=== PATIENT | male | born 1985 | race Caucasian/White ===

== ENCOUNTER 2019-05-11 08:35 | Emergency (ER) | payer BC ==
[~2019-05-11] VITALS: Ht 152.4 cm; Wt 115.2 kg
[2019-05-11 08:55] VITALS: Ht 152.4 cm; Wt 115.2 kg
[2019-05-11 11:11] VITALS: BP 132/84
== END 2019-05-11 11:11 | disposition home or self-care (01) ==
LOC: ED 08:35
DX: J11.1 Influenza due to unidentified influenza virus with other respiratory manifestations (principal)
CPT/HCPCS: 87804; Q0092; Q0162

== ENCOUNTER 2019-05-13 23:21 | Emergency (ER) | payer BC ==
[~2019-05-13] VITALS: Ht 175.3 cm; Wt 112.9 kg
[2019-05-13 23:30] VITALS: Ht 175.3 cm; Wt 112.9 kg
[2019-05-14 02:07] VITALS: BP 135/85
== END 2019-05-14 02:07 | disposition home or self-care (01) ==
LOC: ED 23:21
DX: J10.1 Influenza due to other identified influenza virus with other respiratory manifestations (principal)
CPT/HCPCS: J1885; J7512; J7613; J7644

== ENCOUNTER 2019-05-17 19:45 | Emergency (ER) | payer BC ==
[~2019-05-17] VITALS: Ht 167.6 cm; Wt 112.9 kg
[2019-05-17 20:03] VITALS: Ht 167.6 cm; Wt 112.9 kg
[2019-05-17 22:34] VITALS: BP 130/87
== END 2019-05-17 20:20 | disposition home or self-care (01) ==
LOC: ED 19:45
DX: J98.01 Acute bronchospasm (principal)
CPT/HCPCS: J0696; J7512; J7613

== ENCOUNTER 2019-06-18 00:52 | Emergency (ER) | payer BC ==
[~2019-06-18] VITALS: Ht 175.3 cm; Wt 114.8 kg
[2019-06-18 00:59] VITALS: Ht 175.3 cm; Wt 114.8 kg
[2019-06-18 01:35] VITALS: BP 144/93
== END 2019-06-18 01:35 | disposition home or self-care (01) ==
LOC: ED 00:52
DX: H66.92 Otitis media, unspecified, left ear (principal)
CPT/HCPCS: J0696; J1885